=== PATIENT | female | born 1985 | race Asian ===

== ENCOUNTER 2017-09-26 12:00 | Day surgery (SDC) | payer BC, OTHER ==
[2017-09-26] MEDS ORDERED: PROPOFOL 40 ML (14:55)
[2017-09-26] MEDS ORDERED: LIDOCAINE 2% (SDV) 5 ML INJ (14:55)
[2017-09-26] MEDS ORDERED: MIDAZOLAM 1 MG/ML 2 ML INJ (14:56)
== END 2017-09-26 16:58 | disposition home or self-care (01) ==
LOC: GIL 12:00
DX: K29.50 Unspecified chronic gastritis without bleeding (principal)
CPT/HCPCS: 43239; 88305; 88312